=== PATIENT | male | born 1975 | race Caucasian/White ===

== ENCOUNTER 2017-03-31 19:46 | Emergency (ER) | payer OTHER ==
[2017-03-31] MEDS ORDERED: NS 0.9% 1000 ML* 1,000 ML IV ONE (21:34)
[2017-03-31] MEDS ORDERED: Ondansetron INJ* 2 MG/ML VIAL IV ONE (21:34)
[2017-03-31] MEDS ORDERED: Ondansetron ODT TAB* 4 MG PO PRN (22:53)
[2017-03-31] MEDS ORDERED: Ondansetron ODT TAB* 4 MG PO ONE (23:19)
[2017-03-31 23:34] VITALS: BP 127/79
--- NOTE | 2017-04-01 14:24 | ED ---
Miranda Montelongo Rebecca, scribed for Kolton Lo MD on 03/31/17 at 2100 . Abdominal Pain/Male - HPI Summary HPI Summary: Pt is a 41 y/o M who presents to ED c/o abd pain. Pain began suddenly at 0200 this morning and has been constant and worsening since onset. Pain is in the epigastric region and is characterized as aching. Pain is currently ranked 3/ 10. Sx aggravated by PO intake and alleviated by nothing. Additionally c/o N/V/ D. Denies fever. Notes that last night he did not sleep due to working on an assignment and that he had food that was "off" last night. Prior similar episodes, but less severe. Takes Concerta (36 mg) and Methylphenidate salts (10 mg). - History of Current Complaint Chief Complaint: EDNauseaVomitDiarrh Stated Complaint: VOMITING Time Seen by Provider: 03/31/17 20:51 Hx Obtained From: Patient Onset/Duration: Sudden Onset, Still Present Timing: Constant Severity Initially: Mild Severity Currently: Moderate Pain Intensity: 3 Pain Scale Used: 0-10 Numeric Location: Epigastric Radiates: No Character: Dull Aggravating Factor(s): Food Alleviating Factor(s): Nothing Associated Signs And Symptoms: Positive: Nausea, Vomiting, Diarrhea - Allergies/Home Medications Allergies/Adverse Reactions: Allergies Allergy/AdvReac Type Severity Reaction Status Date / Time Gluten Meal Allergy Unknown Verified 03/31/17 19:53 Reaction Details PMH/Surg Hx/FS Hx/Imm Hx Endocrine/Hematology History: Denies: Hx Diabetes Cardiovascular History: Denies: Hx Hypertension, Hx Pacemaker/ICD Sensory History: Denies: Hx Hearing Aid Psychiatric History: Reports: Hx Attention Deficit Hyperactivity Disorder Denies: Hx Panic Disorder - Surgical History Surgery Procedure, Year, and Place: APPENDECTOMY 29 YRS AGO Infectious Disease History: No Infectious Disease History: Denies: Traveled Outside the [place] in Last 30 Days - Family History Known Family History: Negative: Hypertension - Social History Alcohol Use: None Hx Substance Use: No Substance Use Type: Reports: None Hx Tobacco Use: No Smoking Status (MU): Never Smoked Tobacco Review of Systems Negative: Fever Positive: Abdominal Pain - epigastric, Vomiting, Diarrhea, Nausea All Other Systems Reviewed And Are Negative: Yes Physical Exam Triage Information Reviewed: Yes Vital Signs On Initial Exam: Initial Vitals Temp Pulse Resp BP Pulse Ox 97.8 F 72 16 139/75 100 03/31/17 19:48 03/31/17 19:48 03/31/17 19:48 03/31/17 19:48 03/31/17 19:48 Vital Signs Reviewed: Yes Appearance: Positive: Well-Appearing, No Pain Distress Skin: Positive: Warm, Skin Color Reflects Adequate Perfusion, Dry Head/Face: Positive: Normal Head/Face Inspection Eyes: Positive: Normal Neck: Positive: Supple, Nontender Respiratory/Lung Sounds: Positive: Clear to Auscultation, Breath Sounds Present Cardiovascular: Positive: RRR Abdomen Description: Positive: Nontender, Soft Bowel Sounds: Positive: Present Musculoskeletal: Positive: Normal Neurological: Positive: Normal Psychiatric: Positive: Normal Diagnostics - Vital Signs Vital Signs Temp Pulse Resp BP Pulse Ox 03/31/17 19:53 97.8 F 72 16 139/75 100 03/31/17 19:48 97.8 F 72 16 139/75 100 - Laboratory Lab Statement: Any lab studies that have been ordered have been reviewed, and results considered in the medical decision making process. Re-Evaluation - Re-Evaluation First Eval Re-Evaluation Time: 22:43 Change: Improved Abdominal Pain Fem Course/Dx - Course Assessment/Plan: Mr. Almanza is a 41 y/o M who presents to the ED c/o aching epigastric abdominal pain since 0200 this morning with N/V/D. Irecommended IV hydration and antiemetics but he was feeling a bit better and refused. He had a bit of broth and kept it down and decided to go home. Pt will be D/C to home with a Dx of gastroenteritis and a followup with his PCP. - Diagnoses Provider Diagnoses: Gastroenteritis Discharge - Discharge Plan Condition: Stable Disposition: HOME Patient Education Materials: Gastroenteritis (ED) Forms: *Work Release Referrals: Dylan Marr MD [Primary Care Provider] - 3 Days The documentation as recorded by the Miranda silva Rebecca accurately reflects the service I personally performed and the decisions made by me, Kolton Lo MD.
== END 2017-03-31 23:35 | disposition home or self-care (01) ==
LOC: ED 19:46
DX: K52.9 Noninfective gastroenteritis and colitis, unspecified (principal); R10.9 Unspecified abdominal pain; R11.2 Nausea with vomiting, unspecified; R19.7 Diarrhea, unspecified
CPT/HCPCS: 96374; 99283; A9270-GY

== ENCOUNTER 2017-04-10 14:40 | Emergency (ER) | payer OTHER ==
[2017-04-10] MEDS ORDERED: Ondansetron INJ* 2 MG/ML VIAL IV ONE (15:54)
[2017-04-10] MEDS ORDERED: Aspirin Low Dose CHEW TAB* 81 MG PO ONE (17:19)
--- NOTE | 2017-04-10 17:49 | RAD ---
INDICATION: Palpitations COMPARISON: None. TECHNIQUE: Single AP portable view of the chest was obtained. FINDINGS: Image quality is compromised due to the relative inferiority of a portable chest x-ray. The heart and mediastinum exhibit normal size and contour. The lungs are grossly clear. There is no evidence of a large pleural effusion. Visualized bones are normal for the patient's age. IMPRESSION: No radiographic evidence for acute cardiopulmonary abnormality on this portable chest x-ray.
[2017-04-10 18:20] LABS: Hematocrit 44 % (42-52); Hemoglobin 14.7 g/dl (14.0-18.0); Mean Corpuscular HGB Conc 33 g/dl (31-36); Mean Corpuscular Hemoglobin 30 pg (27-31); Mean Corpuscular Volume 91 fL (80-94); Mean Platelet Volume 7 um3 (7.4-10.4); Red Blood Count 4.87 10^6/ul (4.0-5.4); Red Cell Distribution Width 13 % (10.5-15)
[2017-04-10 18:36] LABS: Albumin 4.6 g/dL (3.2-5.2); BUN/Creatinine Ratio 13.5 (8-20); Calcium 9.8 mg/dL (8.6-10.3); EGFR African American 102.2 (>60); EGFR Non-African American 79.5 (>60); Globulin 2.4 g/dL (2-4); Potassium 3.6 mmol/L (3.5-5.0); Total Bilirubin 0.5 mg/dL (0.2-1.0)
[2017-04-10 19:09] LABS: T4 7.22 mcg/mL (6.09-12.23)
[2017-04-10 19:10] LABS: TSH (Thyroid Stimulating Horm) 1.05 mcIU/mL (0.34-5.60)
[2017-04-10 19:46] VITALS: BP 124/95
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
== END 2017-04-10 19:47 | disposition home or self-care (01) ==
LOC: ED 14:40
DX: R00.2 Palpitations (principal); R07.9 Chest pain, unspecified; R06.02 Shortness of breath; R11.0 Nausea; R51 Headache
CPT/HCPCS: 36415; 71010; 80053; 82553; 83605; 83735; 83880; 84436; 84443; 84484; 85025; 93005; 96374; 99283; A9270-GY; J2405

== ENCOUNTER 2018-05-15 21:47 | Emergency (ER) | payer OTHER ==
--- NOTE | 2018-05-15 22:05 | RAD ---
INDICATION: Crush and bending type injury LEFT hand. Pain at the first and second metacarpals. Associated swelling. COMPARISON: April 28, 2006 LEFT second finger. TECHNIQUE: AP and lateral hand views LEFT hand. REPORT: Negative for fracture or malalignment. Mild dorsal soft tissue swelling at the level of the metacarpals. Small bone island at the proximal pole of the scaphoid. IMPRESSION: Dorsal soft tissue swelling. Negative for fracture.
[2018-05-15 22:07] VITALS: BP 122/81
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
[2018-05-15] MEDS ORDERED: Naproxen TAB* 250 MG PO ONE (22:18)
== END 2018-05-15 22:30 | disposition home or self-care (01) ==
LOC: UCEAST 21:47
DX: S63.502A Unspecified sprain of left wrist, initial encounter (principal); X50.1XXA Overexertion from prolonged static or awkward postures, initial encounter; Y93.89 Activity, other specified; Y92.814 Boat as the place of occurrence of the external cause; Z82.49 Family history of ischemic heart disease and other diseases of the circulatory system; Z83.3 Family history of diabetes mellitus
CPT/HCPCS: 99212; A9270-GY; G0463

== ENCOUNTER 2019-08-09 09:39 | Emergency (ER) | payer OTHER ==
[2019-08-09 09:59] VITALS: BP 108/65
--- NOTE | 2019-08-09 10:44 | UC ---
Throat Pain/Nasal Anoop HPI - HPI Summary HPI Summary: Patient is a 44yo male presenting with cough and cold symptoms x8 days. He states nasal congestion and discharge started first and he developed a cough over the past few days. Notes cough is productive of yellowish sputum and that it is blood tinged at times over the past two days. He is concerned that the blood may be from lung cancer because he began smoking two years ago and his mother of cancer. He is also worried that the infection is bacterial. Denies sinus pain and pressure. Denies itchy/watery eyes. Denies ear pain. Notes mild sore throat. Denies SOB and difficulty breathing. Notes some wheezing two days ago that has since resolved. Denies n/v/d. Denies headache, fever, chills. Patient admits to working too much while going to school at [employer] at the same time. He also admits to not drinking enough fluids and not getting enough rest, describing all of this as "the perfect storm." Patient is very concerned that something more is going on in his lungs. Denies taking anything for symptom relief. - History of Current Complaint Chief Complaint: UCRespiratory Stated Complaint: COUGHED UP BLOOD IN THE MORNING Time Seen by Provider: 08/09/19 10:11 Hx Obtained From: Patient Onset/Duration: Gradual Onset, Lasting Days Severity: Mild Pain Intensity: 0 Pain Scale Used: 0-10 Numeric Cough: Sputum Appears - yellow/brown - Allergies/Home Medications Allergies/Adverse Reactions: Allergies Allergy/AdvReac Type Severity Reaction Status Date / Time gluten Allergy GI Upset Verified 08/09/19 09:59 Home Medications: Home Medications Nep[place] Wort 1 tab PO DAILY 08/09/19 [History Confirmed 08/09/19] Vitamin B Complex TAB* [B Complex-50*] 1 tab PO DAILY 08/09/19 [History Confirmed 08/09/19] Wellness Formula 1 tab PO DAILY 08/09/19 [History Confirmed 08/09/19] PMH/Surg Hx/FS Hx/Imm Hx - Surgical History Surgical History: Yes Surgery Procedure, Year, and Place: APPENDECTOMY - Family History Known Family History: Positive: Cardiac Disease, Diabetes Negative: Hypertension - Social History Alcohol Use: Daily Alcohol Amount: one drink daily Substance Use Type: None Smoking Status (MU): Current Every Day Smoker Review of Systems All Other Systems Reviewed And Are Negative: Yes Constitutional: Positive: Negative. Negative: Fever, Chills, Fatigue Skin: Positive: Negative Eyes: Positive: Negative. Negative: Blurred Vision, Drainage, Eye Redness ENT: Positive: Sore Throat, Sinus Congestion. Negative: Ear Ache, Nasal Discharge, Sinus Pain/Tenderness Respiratory: Positive: Cough. Negative: Shortness Of Breath Cardiovascular: Positive: Negative Gastrointestinal: Positive: Negative. Negative: Abdominal Pain, Vomiting, Diarrhea, Nausea Genitourinary: Positive: Negative Motor: Positive: Negative Neurovascular: Positive: Negative Musculoskeletal: Positive: Negative Neurological: Positive: Negative Psychological: Positive: Anxious Physical Exam Triage Information Reviewed: Yes Appearance: Well-Appearing, No Pain Distress, Well-Nourished Vital Signs: Initial Vital Signs Temp 97.2 F 08/09/19 09:50 Pulse 60 08/09/19 09:50 Resp 16 08/09/19 09:50 BP 108/65 08/09/19 09:50 Pulse Ox 99 08/09/19 09:50 Vital Signs Reviewed: Yes Eye Exam: Normal Eyes: Positive: Conjunctiva Clear. Negative: Discharge ENT Exam: Normal ENT: Positive: Hearing grossly normal, Pharynx normal, Nasal congestion, TMs normal, Uvula midline. Negative: Nasal drainage, TM bulging, TM dull, TM red, Tonsillar swelling, Tonsillar exudate, Muffled voice, Hoarse voice, Sinus tenderness Neck exam: Normal Neck: Positive: Supple, Nontender, No Lymphadenopathy Respiratory Exam: Normal Respiratory: Positive: Lungs clear, Normal breath sounds, No respiratory distress, No accessory muscle use Cardiovascular Exam: Normal Cardiovascular: Positive: RRR, Pulses Normal, Brisk Capillary Refill. Negative : Tachycardia Neurological: Positive: Alert Psychological: Positive: Other: - Anxious appearing Diagnostics - Radiology chest xray Radiology Interpretation Completed By: Radiologist Summary of Radiographic Findings: FINDINGS: The lungs are clear. There is no pleural effusion. The cardiomediastinal silhouette is within normal limits. The upper abdominal contents are normal. Osseous structures are unremarkable. IMPRESSION: No acute cardiac bony process by radiograph. Throat Pain/Nasal Course/Dx - Course Course Of Treatment: Discussed negative chest xray with patient and likely viral cause of symptoms of bronchitis. He may take over the counter cough and cold medications for cold symptoms. May use nasal saline spray or his perlita pot with distilled water as directed for symptomatic relief. May take ibuprofen as directed for pain relief. Instructed to get plenty of rest and fluids and refrain from smoking; he may continue with the nicorette gum. Reassured the patient that his symptoms are likely not caused by lung cancer but that he should follow up with the referrals for further evaluation and aide in smoking cessation. Patient spoke of his anxiety and asked for referral to therapist. He was given information on the [facility]. Patient voiced understanding and agreed to treatment plan. - Differential Dx/Diagnosis Provider Diagnosis: Acute bronchitis Discharge ED - Sign-Out/Discharge Documenting (check all that apply): Patient Departure All imaging exams completed and their final reports reviewed: Yes - Discharge Plan Condition: Stable Disposition: HOME Forms: *Work Release Referrals: [facility] [Outside] - 7 Days [facility]ERR[facility] [Outside] - 7 Days [facility] [Outside] - 7 Days Additional Instructions: As discussed, your chest xray today was negative and your symptoms of bronchitis are most likely caused by a virus. You may continue to take over the counter cough and cold medications for your cold symptoms. You may use nasal saline spray as directed for symptomatic relief. You may take ibuprofen as directed for pain relief. Be sure to get plenty of rest and fluids. Refrain from smoking; you may continue with the nicorette gum. Follow up with the [facility] or Physician Referral as listed below for further evaluation and aide in smoking cessation. Follow up with the [facility] for further information and evaluation of your anxiety. - Billing Disposition and Condition Condition: STABLE Disposition: Home
== END 2019-08-09 11:54 | disposition home or self-care (01) ==
LOC: UCEAST 09:39
DX: J20.9 Acute bronchitis, unspecified (principal); F17.210 Nicotine dependence, cigarettes, uncomplicated
CPT/HCPCS: 71046; 99211; G0463

== ENCOUNTER 2020-01-07 11:44 | Day surgery (SDC) | payer OTHER ==
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
[~2020-01-07 11:44] MED LIST: Acetaminophen TAB* 325 MG ONE; Acetaminophen TAB* 325 MG PO ONE; Buffered Lidocaine 1% SYRIN* 1 ML/SYRINGE INTRADERM ONE; Famotidine IV* 10 MG/ML 2 ML (20 mg) IV ONE; Famotidine IV* 10 MG/ML 2 ML (20 mg) ONE; Lactated Ringers 1000 ML Bag* 1,000 ML IV SCH
[2020-01-07] MEDS ORDERED: Midazolam* 1 MG/ML 5 ML VIAL (5 MG) ONE (13:42)
[2020-01-07] MEDS ORDERED: Ondansetron INJ* 2 MG/ML VIAL ONE (13:56)
[2020-01-07] MEDS ORDERED: Ketorolac INJ* 30 MG/ML 1 ML VIAL ONE (13:56)
[2020-01-07] MEDS ORDERED: Propofol* 10 MG/ML 20 ML BTL ONE (13:56)
[2020-01-07] MEDS ORDERED: Dexamethasone IV* 4 MG/ML 1 ML (4 MG) ONE (13:56)
[2020-01-07] MEDS ORDERED: HYDROmorphone INJ* 0.5 MG/0.5 ML SYRINGE ONE (13:57)
[2020-01-07] MEDS ORDERED: Bupivacaine 0.5% SDV PF* 30ML VIAL ONE (14:04)
[2020-01-07] MEDS ORDERED: oxyCODONE TAB* 5 MG TAB PO PRN (14:10)
[2020-01-07] MEDS ORDERED: Naloxone* 0.4 MG/ML 1 ML VIAL IV PRN (14:10)
[2020-01-07] MEDS ORDERED: DiMENhydriNATE IV* 50 MG/ML VIAL IV PUSH PRN (14:10)
[2020-01-07 15:34] VITALS: BP 116/62
--- NOTE | 2020-01-08 00:12 | OP ---
DATE OF OPERATION: 01/07/20 - [facility] DATE OF : 79 SURGEON: Linda Feng MD EMERGENCY [facility]ICAL SERVICES COORDINATOR: COURTNEY Story ANESTHESIA: General. PRE-OP DIAGNOSIS: Left index finger metacarpal inflammation. POST-OP DIAGNOSIS: Left index finger metacarpal inflammation. OPERATIVE PROCEDURE: Left index finger metacarpal biopsy, rule out osteoid osteoma. INDICATIONS: Grzegorz is a 44-year-old male, who has persistent pain at the base of his left second metacarpal. MRI showed inflammation in the base of the metacarpal and 3-phase bone scan shows increased uptake in the same area. He presents for biopsy of the metacarpal to rule out osteoid osteoma. ESTIMATED BLOOD LOSS: Zero. TOURNIQUET TIME: About 35 minutes. DESCRIPTION OF PROCEDURE: The patient was brought to the operative room and was given a general anesthetic and placed in the supine position on the operating table with a tourniquet around his left upper arm. The skin of his left upper extremity was prepped and draped in the usual sterile fashion. A longitudinal incision was made at the base of the second metacarpal. We dissected bluntly through the subcutaneous tissue down to the ECRB tendon. The extensor tendons were all retracted and then we made an incision in the periosteum at the base of the second metacarpal. The dorsal aspect of the metacarpal was removed with a rongeur and then cancellous bone was removed. We then checked the C-arm and found that we were actually in the third metacarpal, so this defect was packed with bone wax and then we removed a small portion of the dorsal cortex of the second metacarpal with a rongeur and then curetted down to remove the bone that was visualized on the MRI that was edematous. We went down about a centimeter and a half from the dorsal cortex into the very proximal portion of the metacarpal. The bone fragments were sent for pathology to rule out osteoid osteoma. The wound was copiously irrigated with saline. The defect in the second metacarpal was packed with bone wax and the then skin edges were reapproximated with 4-0 nylon suture. The wound was dressed with Xeroform, 4x4, Webril, and an Tapan wrap. The patient tolerated the procedure well and was brought to the recovery room in good condition. [id number]/[facility] #: [id number] [facility] [place]AN[facility]
== END 2020-01-07 15:46 | disposition home or self-care (01) ==
LOC: OREAST 11:44
PROVIDERS: ATTEND Orthopaedic Surgery
DX: D16.12 Benign neoplasm of short bones of left upper limb (principal); F41.8 Other specified anxiety disorders; F17.210 Nicotine dependence, cigarettes, uncomplicated
CPT/HCPCS: 88304; 88311; A9270-GY; J1100; J1170; J1885; J2250; J2405; J2704; J3490

== ENCOUNTER 2020-02-21 19:25 | Emergency (ER) | payer OTHER ==
--- NOTE | 2020-02-21 19:30 | UC ---
General HPI - HPI Summary HPI Summary: 44 yo gentleman c/o sore throat x apprx 3 weeks Seen by pcp 02/05/20, didn't think it was strep No recent fever, but hard to tell if he has a fever No rash Min cough. No sob /cp / palpiatations No n/v. some loose stool. No h/a reported Recently quit smoking. But sx started prior to quitting smoking. Is anxious about covid 19. He is certain of a known exposure. - History of Current Complaint Stated Complaint: SORE THROAT Time Seen by Provider: 02/21/20 19:28 Hx Obtained From: Patient - Allergy/Home Medications Allergies/Adverse Reactions: Allergies Allergy/AdvReac Type Severity Reaction Status Date / Time gluten Allergy GI Upset Verified 02/21/20 19:36 Home Medications: Home Medications Vitamin B Complex TAB* [B Complex-50*] 1 tab PO QAM 08/09/19 [History Confirmed 02/21/20] Wellness Formula 1 tab PO QAM 08/09/19 [History Confirmed 02/21/20] Bupropion XL* [Wellbutrin XL *] 300 mg PO QAM 12/31/19 [History Confirmed ] Divalproex Sodium [Depakote ER] 1 tab PO BEDTIME 12/31/19 [History Confirmed 02/06] Zolpidem TAB* [Ambien TAB*] 5 mg PO BEDTIME PRN 12/31/19 [History Confirmed 02/06] clonazePAM TAB(*) [KlonoPIN TAB(*)] 0.5 mg PO TID PRN 12/31/19 [History Confirmed 02/21/20] ALPRAZolam [Alprazolam Xr] 1 mg PO DAILY 02/21/20 [History Confirmed 02/21/20] [place] Carbonate 150 mg PO TID 02/21/20 [History Confirmed 02/21/20] Methylphenidate ER TAB* [Concerta ER TAB*] 18 mg PO DAILY 02/21/20 [History Confirmed 02/21/20] Methylphenidate TAB* [Ritalin TAB*] 5 mg PO BID 02/21/20 [History Confirmed 02/06] PMH/Surg Hx/FS Hx/Imm Hx Previously Healthy: Yes - recently quit smoking - Surgical History Surgical History: Yes Surgery Procedure, Year, and Place: APPENDECTOMY A CHILD. LOCAL ANESTHESIA- REMOVAL OF WISDOM TEETH - Family History Known Family History: Positive: Cardiac Disease, Diabetes Negative: Hypertension - Social History Alcohol Use: Occasionally Alcohol Amount: one drink daily Substance Use Type: Marijuana Substance Use Comment - Amount & Last Used: MARIJUANA OCCASIONALLY Smoking Status (MU): Light Every Day Tobacco Smoker Amount Used/How Often: 3-6 CIGARETTES PER DAY X OFF AND ON- RECENTLY STARTED A COUPLE YEARS AGO Have You Smoked in the Last Year: Yes Review of Systems All Other Systems Reviewed And Are Negative: Yes Constitutional: Positive: Negative Skin: Positive: Negative Eyes: Positive: Negative ENT: Positive: Sore Throat Respiratory: Positive: Other - see hpi Cardiovascular: Positive: Negative Gastrointestinal: Positive: Other - see hpi Genitourinary: Positive: Negative Motor: Positive: Negative Neurovascular: Positive: Negative Musculoskeletal: Positive: Negative Neurological/Mental Status: Positive: Negative Psychological: Positive: Negative Is Patient Immunocompromised?: No Physical Exam Triage Information Reviewed: Yes Appearance: Well-Appearing, Well-Nourished Vital Signs Reviewed: Yes Eye Exam: Normal ENT: Positive: Pharyngeal erythema - mild post pharyng redness, no purulence, uvula midline No sores / exudates noted, TM dull - R eac + exzema Neck exam: Normal Neck: Positive: Supple, Nontender, No Lymphadenopathy Respiratory Exam: Normal Respiratory: Positive: Chest non-tender, Lungs clear, Normal breath sounds, No respiratory distress, No accessory muscle use Cardiovascular Exam: Normal Cardiovascular: Positive: RRR, Pulses Normal, Brisk Capillary Refill Abdominal Exam: Normal - benign Abdomen Description: Positive: Nontender Musculoskeletal Exam: Normal Musculoskeletal: Positive: Strength Intact Neurological Exam: Normal - grossly nonfocal Psychological Exam: Normal - nad Skin Exam: Normal - no visible or reported rash nondiaphoretic Course/Dx - Course Course Of Treatment: Is not sure if he wants to be tested for covid 19. I clarified that we can tell +/- covid by symptoms alone, indeed some are asymptomatic. Mr. Almanza carefully considered Covid testing, but declines. Will seek medical attention for worse or new issues. RST neg Reviewed coa /tx plan. Questions as posed answered to the best of my ability. - Diagnoses Provider Diagnosis: Viral syndrome Discharge ED - Sign-Out/Discharge Documenting (check all that apply): Patient Departure All imaging exams completed and their final reports reviewed: No Studies - Discharge Plan Condition: Stable Disposition: HOME Patient Education Materials: Viral Syndrome (ED) Referrals: Cr Musa MD [Primary Care Provider] - Additional Instructions: Hydrate. Follow up with your primary care physician, per routine. Please seek medical attention for worse or new problems. - Billing Disposition and Condition Condition: STABLE Disposition: Home
[2020-02-21 20:02] VITALS: BP 121/76
== END 2020-02-21 20:20 | disposition home or self-care (01) ==
LOC: UCEAST 19:25
DX: B34.9 Viral infection, unspecified (principal); Z91.018 Allergy to other foods; Z87.891 Personal history of nicotine dependence
CPT/HCPCS: 87651; 99211; G0463